=== PATIENT | female | born 1960 | race Caucasian/White ===

== ENCOUNTER → 2021-06-06 | Outpatient (CLI) | payer OTHER ==
[~2021-06-06] MED LIST: CHOL10002; GLIM2 PO; LEVSOD75 PO; METF500 PO; SUPER B COMPLE1 EACH PO
[2021-06-08 15:11] LABS: HPV 16 Negative (Negative); HPV 18 Negative (Negative); HPV OTHER HR TYPES Negative (Negative)
== END | disposition home or self-care (01) ==
LOC: LAB SHORT 17:00
PROVIDERS: Obstetrics & Gynecology
DX: Z12.4 Encounter for screening for malignant neoplasm of cervix (principal)
CPT/HCPCS: 87624; G0123

== ENCOUNTER → 2022-06-18 | Outpatient (CLI) | payer OTHER ==
[2022-06-18 14:26] LABS: Microalbumin, Urine Quant. 8.9 mg/L (0.000-20.000)
[2022-06-25 13:11] LABS: DOPAMINE, URINE 136 ug/L (Undefined)
[2022-06-26 10:11] LABS: METANEPHRINE, UR 93 ug/L (Undefined)
== END ==
LOC: LAB SHORT 10:24 → LAB 10:24
PROVIDERS: Internal Medicine
DX: D35.02 Benign neoplasm of left adrenal gland (principal)
CPT/HCPCS: 81050; 82043; 82384; 82530; 83835